=== PATIENT | male | born 1955 | race Two or more races ===

== ENCOUNTER 2022-11-12 06:15 | Day surgery (SDC) | payer MEDICARE ==
[2022-11-10 12:32] LABS: Basophils # (auto) 0.1 10 ^3/uL (0-0.2); Basophils % (auto) 0.9 % (0.0-2.0); Eosinophils # (auto) 0.1 10 ^3/uL (0-0.8); Eosinophils % (auto) 1.4 % (0.0-7.0); Hematocrit 47.9 % (41.0-53.0); Hemoglobin 16.4 g/dL (13.5-17.5); Lymphocytes # (auto) 1.9 10 ^3/uL (0.4-5.4); Lymphocytes % (auto) 25.3 % (10.0-50.0); Mean Corpuscular Hemoglobin 30.2 pg (28.0-32.0); Mean Corpuscular Hgb Conc. 34.2 g/dL (32.0-36.0); Mean Corpuscular Volume 88.2 fL (80.0-100.0); Monocytes # (auto) 0.6 10 ^3/uL (0-1.3); Monocytes % (auto) 8.2 % (0.0-12.0); Neutrophils # (auto) 4.8 10 ^3/uL (1.6-8.6); Neutrophils % (auto) 64.2 % (37.0-80.0); Nucleated Red Blood Cells % 0.2 %; Red Blood Cells 5.43 10^6/uL (4.5-5.90); Red Cell Distribution Width 13.3 % (11.8-14.3); White Blood Cell 7.5 10^3/uL (4.4-10.8)
[2022-11-10 12:45] LABS: Urine Bacteria NONE SEEN /hpf (None Seen); Urine Blood Negative /uL (Negative); Urine Specific Gravity 1.017 (1.001-1.035); Urine WBC <1 /hpf (0 - 3)
[2022-11-10 12:48] LABS: INR 1.08 (0.9-1.15); Partial Thromboplastin Time 30.4 sec (24.6-33.4)
[2022-11-10 13:40] LABS: Albumin 3.7 g/dL (3.4-5.0); Calcium 9.6 mg/dL (8.5-10.1); Potassium 4.1 mmol/L (3.5-5.1)
[2022-11-10 13:48] LABS: Bilirubin, Total 0.7 mg/dL (0.2-1.0); Total Protein 8.3 g/dL (6.4-8.2)
[~2022-11-12] VITALS: Ht 190.5 cm; Wt 106.6 kg
[2022-11-12] MEDS ORDERED: ROPIVACAINE 0.5% (5MG/ML) 20ML AMPULE IJ ONE (06:50)
[2022-11-12] MEDS ORDERED: BUPIVACAINE 0.25% INJ 50ML VIAL ONE (06:50)
[2022-11-12] MEDS ORDERED: ceFAZolin 1GM/50ML 100 ML IV ONE (07:07)
[2022-11-12] MEDS ORDERED: BACITRACIN TOP OINT 1 UD PKG TOP ONE (07:12)
[2022-11-12] MEDS ORDERED: MIDAZOLAM HCL 2MG/2ML 2ml VIAL (1mg/ml) ONE (07:38)
[2022-11-12] MEDS ORDERED: fentaNYL CITRATE 100 MCG/2 ML VL ONE (07:38)
[2022-11-12] MEDS ORDERED: ONDANSETRON HCL 4 MG/2 ML VIAL ONE (07:43)
[2022-11-12] MEDS ORDERED: PROPOFOL 10 MG/ML 20 ML IV ONE ×2 (07:43→08:43)
[2022-11-12] MEDS ORDERED: LIDOCAINE 2% (LOCAL ANESTH.) PF 5ml SDV ONE (07:43)
[2022-11-12] MEDS ORDERED: ONDANSETRON HCL 4 MG/2 ML VIAL IV PRN (08:15)
[2022-11-12] MEDS ORDERED: HYDROmorphone HCL 2 MG/ML VL/or syr IV PRN ×2 (08:15)
[2022-11-12 09:43] VITALS: BP 127/79
== END 2022-11-12 09:55 | disposition home or self-care (01) ==
LOC: SUR 06:15
PROVIDERS: ATTEND Podiatrist Foot & Ankle Surgery
DX: M20.22 Hallux rigidus, left foot (principal); M79.672 Pain in left foot; M20.42 Other hammer toe(s) (acquired), left foot; M05.872 Other rheumatoid arthritis with rheumatoid factor of left ankle and foot; M25.775 Osteophyte, left foot; M19.072 Primary osteoarthritis, left ankle and foot
CPT/HCPCS: 28755; 36415; 73620; 80053; 81001; 85025; 85610; 85730; 88305; 88311; C1769; J0690; J2001; J2250; J2405; J2704; J2795; J3010; J3490

== ENCOUNTER → 2024-03-09 | Day surgery (SDC) | payer MEDICARE ==
[2024-03-07 11:37] LABS: Urine Bacteria None Seen /hpf (None Seen); Urine WBC None Seen /hpf (0 - 3)
[2024-03-07 11:55] LABS: Basophils # (auto) 0 10 ^3/uL (0-0.2); Basophils % (auto) 0.7 % (0.0-2.0); Eosinophils # (auto) 0.2 10 ^3/uL (0-0.8); Eosinophils % (auto) 2.5 % (0.0-7.0); Hematocrit 45.6 % (41.0-53.0); Hemoglobin 15.9 g/dL (13.5-17.5); Lymphocytes # (auto) 1.7 10 ^3/uL (0.4-5.4); Lymphocytes % (auto) 26.8 % (10.0-50.0); Mean Corpuscular Hgb Conc. 34.8 g/dL (32.0-36.0); Mean Corpuscular Volume 89.2 fL (80.0-100.0); Monocytes # (auto) 0.6 10 ^3/uL (0-1.3); Monocytes % (auto) 9.7 % (0.0-12.0); Neutrophils # (auto) 3.9 10 ^3/uL (1.6-8.6); Neutrophils % (auto) 60.3 % (37.0-80.0); Platelet Count (auto) 158 10^3/uL (140-450); Red Blood Cells 5.12 10^6/uL (4.5-5.90); Red Cell Distribution Width 13.4 % (11.8-14.3); White Blood Cell 6.5 10^3/uL (4.4-10.8)
[2024-03-07 12:02] LABS: Urine Blood Negative /uL (Negative); Urine Clarity Clear (Clear); Urine Color Yellow (Yellow); Urine Protein, UAD 1+ (Negative); Urine Specific Gravity 1.017 (1.001-1.035); Urine Urobilinogen Normal (Negative); Urine pH 7.5 (5.0-9.0)
[2024-03-07 12:12] LABS: INR 1.1 (0.9-1.15); Partial Thromboplastin Time 28.6 SEC (24.5-34.5); Prothrombin Time 11.6 sec (9.3-11.8)
[2024-03-07 12:28] LABS: Alanine Aminotransferase 56 U/L (7-40); Albumin 4.3 g/dL (3.2-4.8); Alkaline Phosphatase 175 U/L (46-116); Anion Gap 6 (5-15); Aspartate Aminotransferase 50 U/L (13-40); BUN/Creatinine Ratio 9.6 (10.0-20.0); Bilirubin, Total 0.8 mg/dL (0.2-1.0); Blood Urea Nitrogen 11 mg/dL (9-23); Calcium 9.7 mg/dL (8.7-10.4); Carbon Dioxide 25 mmol/L (20-30); Chloride 107 mmol/L (98-107); Glucose 111 mg/dL (74-106); Sodium 138 mmol/L (136-145); Total Protein 7.3 g/dL (5.7-8.2)
[~2024-03-09] VITALS: Ht 190.5 cm; Wt 112.5 kg
[~2024-03-09] MED LIST: BACITRACIN TOP OINT 1 UD PKG TOP ONE; DULO20CA PO; FENO54TA4 PO; IBUP-1456 PO; LIDOCAINE 1% INJ PF 5ML AMP ONE; LISI20TA56 PO; MIDAZOLAM HCL 2MG/2ML 2ml VIAL (1mg/ml) ONE; ONDANSETRON HCL 4 MG/2 ML VIAL IV ONE; ONDANSETRON HCL 4 MG/2 ML VIAL ONE; PANT40TA2 PO; PROPOFOL 10 MG/ML 20 ML IV ONE; ceFAZolin 2 GM/D5W50ml 50 ML IV ONE; fentaNYL CITRATE 100 MCG/2 ML VL ONE
[2024-03-09] MEDS: ROPIVACAINE 0.5% (5MG/ML) 20ML AMPULE IJ ONE (09:24)
[2024-03-09] MEDS: ceFAZolin 1GM VL ONE (09:25)
[2024-03-09 09:36] VITALS: TEMP 98; O2SAT 97
[2024-03-09 10:00] VITALS: BP 124/75; PULSE 62; RESP 15; O2SAT 93
== END | disposition home or self-care (01) ==
LOC: SUR 06:40
PROVIDERS: ATTEND Podiatrist Foot & Ankle Surgery
DX: M89.8X7 Other specified disorders of bone, ankle and foot (principal); I10 Essential (primary) hypertension; Z98.890 Other specified postprocedural states; Z85.528 Personal history of other malignant neoplasm of kidney; Z98.41 Cataract extraction status, right eye; Z98.42 Cataract extraction status, left eye; Z90.5 Acquired absence of kidney; Z79.899 Other long term (current) drug therapy
CPT/HCPCS: 28104; 36415; 80053; 81001; 85025; 85610; 85730; 88305; 88311; J0690; J2250; J2405; J2704; J2795; J3010